=== PATIENT | male | born 1970 | race Two or more races ===

== ENCOUNTER 2018-11-26 19:41 | Emergency (ER) | payer MEDICAID, OTHER ==
[~2018-11-26] VITALS: Ht 177.8 cm; Wt 75.3 kg
[2018-11-26 22:28] VITALS: BP 118/76
== END 2018-11-27 00:49 | disposition home or self-care (01) ==
LOC: ER 19:45
DX: T23.241A Burn of second degree of multiple right fingers (nail), including thumb, initial encounter (principal); T31.0 Burns involving less than 10% of body surface; X19.XXXA Contact with other heat and hot substances, initial encounter; Y93.89 Activity, other specified; Y99.8 Other external cause status; Y92.89 Other specified places as the place of occurrence of the external cause

== ENCOUNTER 2019-06-16 10:31 | Emergency (ER) | payer MEDICAID ==
[~2019-06-16] VITALS: Ht 175.3 cm; Wt 81.2 kg
[2019-06-16 11:08] VITALS: BP 126/79
== END 2019-06-16 11:57 | disposition left against medical advice (07) ==
LOC: ER 10:43
DX: N48.89 Other specified disorders of penis (principal); Z53.21 Procedure and treatment not carried out due to patient leaving prior to being seen by health care provider

== ENCOUNTER 2020-03-10 12:31 | Emergency (ER) | payer SELFPAY ==
[~2020-03-10] VITALS: Ht 177.8 cm; Wt 80.7 kg
[2020-03-10 12:52] VITALS: BP 129/85
== END 2020-03-10 13:10 | disposition home or self-care (01) ==
LOC: ER 12:31
DX: J02.9 Acute pharyngitis, unspecified (principal)

== ENCOUNTER 2022-08-07 09:19 | Emergency (ER) | payer MEDICAID ==
[~2022-08-07] VITALS: Ht 162.6 cm; Wt 80.8 kg
[2022-08-07 09:43] VITALS: BP 118/69
[2022-08-07] MEDS ORDERED: cefTRIAXone SOD 1,000 MG VL IM ONE (10:00)
[2022-08-07] MEDS ORDERED: PROM1SOL4 PO (10:15)
[2022-08-07] MEDS ORDERED: AZIT500T66 PO (10:15)
== END 2022-08-07 10:34 | disposition home or self-care (01) ==
LOC: ER 09:19
DX: J20.9 Acute bronchitis, unspecified (principal); J03.90 Acute tonsillitis, unspecified
CPT/HCPCS: 71046; 96372; 99283; J0696

== ENCOUNTER 2023-06-11 03:42 | Emergency (ER) | payer MEDICAID ==
[~2023-06-11] VITALS: Ht 177.8 cm; Wt 79.5 kg
[~2023-06-11 03:42] MED LIST: AZIT500T66 PO; PROM1SOL4 PO
[2023-06-11 07:05] VITALS: BP 117/78; PULSE 89; RESP 19; TEMP 98.6; O2SAT 97
[2023-06-11 07:38] LABS: COVID19 ANTIGEN SOFIA FIA POSITIVE (NEGATIVE)
[2023-06-11] MEDS ORDERED: BENZ100C97 PO (07:40)
[2023-06-11] MEDS ORDERED: NIRM1TAB PO (07:40)
[2023-06-11] MEDS ORDERED: ALBUAER3 IN (07:40)
== END 2023-06-11 08:36 | disposition home or self-care (01) ==
LOC: ER 03:42
DX: U07.1 COVID-19 (principal); J20.9 Acute bronchitis, unspecified
CPT/HCPCS: 36415; 71046; 87426